=== PATIENT | female | born 1945 ===

== ENCOUNTER 2019-02-21 05:46 | Inpatient (IN) ==
[2019-02-21] MEDS ORDERED: FAMOTIDINE 20 MG TABLET PO ONE (06:00)
[2019-02-21] MEDS ORDERED: ceFAZolin 1,000 MG in SYRINGE 1 EACH IV ONE (06:00)
[2019-02-21] MEDS ORDERED: INDOCYANINE GREEN 25 MG VIAL IV ONE ×2 (06:06→06:14)
[2019-02-21] MEDS ORDERED: LIDOCAINE MPF 1% /EPI 30 ML VIAL ONE (06:14)
[2019-02-21] MEDS ORDERED: BUPIVACAINE 0.25% /EPI 10 ML VIAL ONE (06:14)
[2019-02-21] MEDS ORDERED: TISSUE ADHESIVE 1 EACH APPLICATOR TOP ONE (06:14)
[2019-02-21] MEDS ORDERED: ACETAMINOPHEN 500 MG TABLET PO ONE (06:44)
[2019-02-21] MEDS ORDERED: FAMOTIDINE 20 MG TABLET ONE (06:47)
[2019-02-21] MEDS ORDERED: ceFAZolin 1,000 MG VIAL ONE (06:47)
[2019-02-21] MEDS ORDERED: PIPERACILLIN/TAZOBACTAM 3,375 MG in SODIUM CHLORIDE 0.9% 100 ML IV ONE (06:58)
[2019-02-21] MEDS ORDERED: LACTATED RINGERS 1,000 ML IV SCH (07:00)
[2019-02-21] MEDS ORDERED: PIPERACILLIN/TAZOBACTAM 3,375 MG VIAL IV ONE (07:13)
[2019-02-21 07:17] LABS: Basophils % 0.4 % (0.0-0.8); Hematocrit 22.8 VOL% (35.7-47.0); Hemoglobin 7.4 GM/DL (12.0-16.0); Immature Granulocytes % 0.2 %; Immature Granulocytes Absolute 0.01 #; Lymphocytes # 0.8 10*3/uL (1.4-4.0); Lymphocytes % 15.9 % (21.3-54.2); Mean Corpuscular HGB Conc 32.5 GM/DL (32-36); Mean Corpuscular Volume 93.4 FL (87-102); Mean Platelet Volume 9.2 FL (9.6-12.0); Monocytes % 7.8 % (1.7-12.7); Neutrophils % 75.7 % (38.7-73.9); Platelet Count 102 T/CUMM (130-400); Red Blood Count 2.44 MC/CUMM (3.8-5.5); Red Cell Distribution Width 12.9 % (9.3-17.3)
[2019-02-21 07:41] LABS: Apearance,Urine CLOUDY (Clear); Bilirubin,Urine Negative (Negative); Blood, Urine Moderate mg/dL (Negative); Glucose,Urine (UA) Negative (Negative); Ketones,Urine Negative (Negative); Mucus,Urine Occasional /LPF (Occasional); Nitrite,Urine Negative (Negative); Protein,Urine 30 MG/DL; RBC,Urine 20 /HPF (0-4); Squamous Epithelial Cell,Urine Occasional /HPF (0-10); Urine Color Yellow (Yellow); Urine Specific Gravity 1.008 (1.001-1.035); Urine Urobilinogen < 2.0 EU/DL (0.2-1.0); WBC,Urine 707 /HPF (0-6)
[2019-02-21 07:48] LABS: Alanine Aminotransferase 15 U/L (13-56); Albumin 2.2 G/DL (3.4-5.0); Alkaline Phosphatase 60 U/L (45-117); Aspartate Amino Transferase 12 U/L (0-37); Bilirubin,Total < 0.39 MG/DL (0.2-1.0); Blood Urea Nitrogen 6 MG/DL (7-18); Calcium 7.7 MG/DL (8.5-10.1); Estimated Glom Filtration Rate 111 ML/MIN; Glucose 115 MG/DL (74-106); Osmolality,Calculated 273.7 MOS/KG (273-304); Total Protein 5.8 G/DL (6.4-8.3)
[2019-02-21 08:31] LABS: Basophils % 0.3 % (0.0-0.8); Hematocrit 32.7 VOL% (35.7-47.0); Immature Granulocytes % 0.1 %; Immature Granulocytes Absolute 0.01 #; Lymphocytes # 1.3 10*3/uL (1.4-4.0); Lymphocytes % 18.3 % (21.3-54.2); Mean Corpuscular HGB Conc 33.6 GM/DL (32-36); Mean Corpuscular Volume 89.8 FL (87-102); Mean Platelet Volume 9.5 FL (9.6-12.0); Monocytes % 7.1 % (1.7-12.7); Neutrophils % 74.2 % (38.7-73.9); Red Cell Distribution Width 12.9 % (9.3-17.3)
[2019-02-21 08:32] LABS: Platelet Count 143 T/CUMM (130-400); Red Blood Count 3.64 MC/CUMM (3.8-5.5)
[2019-02-21 08:45] LABS: Alanine Aminotransferase 20 U/L (13-56); Albumin 2.9 G/DL (3.4-5.0); Alkaline Phosphatase 75 U/L (45-117); Aspartate Amino Transferase 14 U/L (0-37); Blood Urea Nitrogen 7 MG/DL (7-18); Calcium 8.4 MG/DL (8.5-10.1); Estimated Glom Filtration Rate 97 ML/MIN; Glucose 140 MG/DL (74-106); Osmolality,Calculated 274.7 MOS/KG (273-304); Total Protein 7.3 G/DL (6.4-8.3)
[2019-02-21] MEDS ORDERED: ONDANSETRON 4 MG/2 ML VIAL IV PRN (10:45)
[2019-02-21] MEDS ORDERED: MINERAL OIL ENEMA 133 ML BOTTLE RECTAL PRN (10:45)
[2019-02-21] MEDS ORDERED: PROMETHAZINE 25 MG/1 ML VIAL IM PRN (10:45)
[2019-02-21] MEDS ORDERED: MAGNESIUM HYDROXIDE SUSP 30 ML UDCUP PO PRN (10:45)
[2019-02-21] MEDS ORDERED: DEXTROSE 50% 25 GM/50 ML VIAL IV PRN (10:45)
[2019-02-21] MEDS ORDERED: GLUCAGON 1 MG VIAL IM PRN (10:45)
[2019-02-21] MEDS: PANTOPRAZOLE 40 MG TABLET PO SCH (11:26)
[2019-02-21] MEDS: metroNIDAZOLE INJ 500 MG in PREMIX 1 EACH IV SCH ×2 (11:26→19:28)
[2019-02-21] MEDS: INSULIN REGULAR 100 UNIT/ML SUBCUT SCH ×6 (11:30→20:33)
[2019-02-21] MEDS: LEVOFLOXACIN INJ 750 MG in PREMIX 1 EACH IV SCH (12:37)
[2019-02-21] MEDS: ACETAMINOPHEN 325 MG TABLET PO PRN ×2 (16:33→22:39)
[2019-02-21] MEDS: LACTATED RINGERS 1,000 ML IV SCH ×2 (17:32→18:45)
[2019-02-21] MEDS: METOPROLOL TARTRATE 25 MG TABLET PO SCH (20:34)
[2019-02-21] MEDS: DOCUSATE/SENNA 50-8.6 MG TABLET PO SCH (20:34)
[2019-02-21] MEDS: INSULIN GLARGINE 100 UNIT/ML SUBCUT SCH (20:34)
[2019-02-21] MEDS: TRAVOPROST 0.004% OPH SOLN 2.5 ML BOTTLE BOTH EYES SCH (20:37)
[2019-02-22] MEDS: ENOXAPARIN 40 MG/0.4 ML SYRINGE SUBCUT SCH (02:09)
[2019-02-22] MEDS: LACTATED RINGERS 1,000 ML IV SCH ×3 (02:11→18:45)
[2019-02-22] MEDS: metroNIDAZOLE INJ 500 MG in PREMIX 1 EACH IV SCH ×3 (02:13→20:27)
[2019-02-22] MEDS: INSULIN REGULAR 100 UNIT/ML SUBCUT SCH ×8 (07:21→20:44)
[2019-02-22] MEDS: METOPROLOL TARTRATE 25 MG TABLET PO SCH ×2 (09:19→20:42)
[2019-02-22] MEDS: LISINOPRIL 20 MG TABLET PO SCH (09:21)
[2019-02-22] MEDS: PANTOPRAZOLE 40 MG TABLET PO SCH (09:21)
[2019-02-22] MEDS: CETIRIZINE 10 MG TABLET PO SCH (09:27)
[2019-02-22] MEDS: TIMOLOL 0.5% OPH SOLN 5 ML BOTTLE BOTH EYES SCH (09:27)
[2019-02-22] MEDS: ACETAMINOPHEN 325 MG TABLET PO PRN ×2 (09:27→16:19)
[2019-02-22] MEDS: LEVOFLOXACIN INJ 750 MG in PREMIX 1 EACH IV SCH (13:03)
[2019-02-22] MEDS: DOCUSATE/SENNA 50-8.6 MG TABLET PO SCH (20:42)
[2019-02-22] MEDS: INSULIN GLARGINE 100 UNIT/ML SUBCUT SCH (20:43)
[2019-02-22] MEDS: TRAVOPROST 0.004% OPH SOLN 2.5 ML BOTTLE BOTH EYES SCH (20:45)
[2019-02-23] MEDS: LACTATED RINGERS 1,000 ML IV SCH ×5 (00:40→23:44)
[2019-02-23] MEDS: ENOXAPARIN 40 MG/0.4 ML SYRINGE SUBCUT SCH (02:15)
[2019-02-23] MEDS: metroNIDAZOLE INJ 500 MG in PREMIX 1 EACH IV SCH ×3 (02:18→18:16)
[2019-02-23 06:08] LABS: Basophils % 0.4 % (0.0-0.8); Eosinophils % 0.4 % (0.00-10.9); Hematocrit 33.2 VOL% (35.7-47.0); Immature Granulocytes % 0.4 %; Immature Granulocytes Absolute 0.02 #; Lymphocytes # 1.3 10*3/uL (1.4-4.0); Lymphocytes % 26.6 % (21.3-54.2); Mean Corpuscular HGB Conc 33.1 GM/DL (32-36); Mean Corpuscular Volume 90.2 FL (87-102); Mean Platelet Volume 8.9 FL (9.6-12.0); Monocytes % 10.9 % (1.7-12.7); Neutrophils % 61.3 % (38.7-73.9); Platelet Count 135 T/CUMM (130-400); Red Blood Count 3.68 MC/CUMM (3.8-5.5)
[2019-02-23 06:29] LABS: Alanine Aminotransferase 17 U/L (13-56); Albumin 2.7 G/DL (3.4-5.0); Alkaline Phosphatase 70 U/L (45-117); Aspartate Amino Transferase 11 U/L (0-37); Bilirubin,Total < 0.39 MG/DL (0.2-1.0); Blood Urea Nitrogen 5 MG/DL (7-18); Calcium 8.8 MG/DL (8.5-10.1); Estimated Glom Filtration Rate 97 ML/MIN; Glucose 90 MG/DL (74-106); Osmolality,Calculated 275.4 MOS/KG (273-304); Total Protein 7.3 G/DL (6.4-8.3)
[2019-02-23] MEDS: INSULIN REGULAR 100 UNIT/ML SUBCUT SCH ×8 (07:30→20:45)
[2019-02-23] MEDS: CETIRIZINE 10 MG TABLET PO SCH (08:27)
[2019-02-23] MEDS: METOPROLOL TARTRATE 25 MG TABLET PO SCH ×2 (08:27→20:45)
[2019-02-23] MEDS: PANTOPRAZOLE 40 MG TABLET PO SCH (08:27)
[2019-02-23] MEDS: LISINOPRIL 20 MG TABLET PO SCH (08:27)
[2019-02-23] MEDS: TIMOLOL 0.5% OPH SOLN 5 ML BOTTLE BOTH EYES SCH (08:31)
[2019-02-23] MEDS: ACETAMINOPHEN 325 MG TABLET PO PRN ×3 (08:58→20:51)
[2019-02-23] MEDS ORDERED: hydrALAZINE 20 MG/1 ML VIAL IV PRN (09:22)
[2019-02-23] MEDS: LEVOFLOXACIN INJ 750 MG in PREMIX 1 EACH IV SCH (12:12)
[2019-02-23] MEDS: DOCUSATE/SENNA 50-8.6 MG TABLET PO SCH (20:45)
[2019-02-23] MEDS: INSULIN GLARGINE 100 UNIT/ML SUBCUT SCH (20:45)
[2019-02-23] MEDS: TRAVOPROST 0.004% OPH SOLN 2.5 ML BOTTLE BOTH EYES SCH (20:45)
[2019-02-24] MEDS: metroNIDAZOLE INJ 500 MG in PREMIX 1 EACH IV SCH (01:48)
[2019-02-24] MEDS: LACTATED RINGERS 1,000 ML IV SCH (02:56)
[2019-02-24 05:11] LABS: Basophils % 0.8 % (0.0-0.8); Eosinophils % 0.5 % (0.00-10.9); Hematocrit 30.5 VOL% (35.7-47.0); Hemoglobin 10.1 GM/DL (12.0-16.0); Immature Granulocytes % 0.3 %; Immature Granulocytes Absolute 0.01 #; Lymphocytes # 1.2 10*3/uL (1.4-4.0); Lymphocytes % 31.9 % (21.3-54.2); Mean Corpuscular HGB Conc 33.1 GM/DL (32-36); Mean Corpuscular Volume 92.1 FL (87-102); Mean Platelet Volume 9.4 FL (9.6-12.0); Monocytes % 10.6 % (1.7-12.7); Neutrophils % 55.9 % (38.7-73.9); Platelet Count 128 T/CUMM (130-400); Red Blood Count 3.31 MC/CUMM (3.8-5.5); White Blood Count 3.8 T/CUMM (4-12)
[2019-02-24 05:47] LABS: Albumin 2.8 G/DL (3.4-5.0); Calcium 8.9 MG/DL (8.5-10.1); Osmolality,Calculated 280.3 MOS/KG (273-304); Total Protein 7.1 G/DL (6.4-8.3)
[2019-02-24] MEDS ORDERED: ceFAZolin 1,000 MG in SYRINGE 1 EACH IV ONE (06:30)
[2019-02-24] MEDS ORDERED: INDOCYANINE GREEN 25 MG VIAL IV ONE (07:00)
[2019-02-24] MEDS: INSULIN REGULAR 100 UNIT/ML SUBCUT SCH ×5 (08:39→21:53)
[2019-02-24] MEDS: AMPICILLIN/SULBACTAM 1,500 MG in SODIUM CHLORIDE 0.9% 100 ML IV SCH ×3 (08:54→23:45)
[2019-02-24] MEDS: METOPROLOL TARTRATE 25 MG TABLET PO SCH ×2 (09:24→21:54)
[2019-02-24] MEDS: CETIRIZINE 10 MG TABLET PO SCH (09:25)
[2019-02-24] MEDS: LISINOPRIL 20 MG TABLET PO SCH (09:25)
[2019-02-24] MEDS: PANTOPRAZOLE 40 MG TABLET PO SCH (09:25)
[2019-02-24] MEDS: TIMOLOL 0.5% OPH SOLN 5 ML BOTTLE BOTH EYES SCH (09:26)
[2019-02-24] MEDS: ACETAMINOPHEN 325 MG TABLET PO PRN ×2 (11:44→19:45)
[2019-02-24] MEDS: INSULIN GLARGINE 100 UNIT/ML SUBCUT SCH (21:53)
[2019-02-24] MEDS: DOCUSATE/SENNA 50-8.6 MG TABLET PO SCH (21:54)
[2019-02-24] MEDS: TRAVOPROST 0.004% OPH SOLN 2.5 ML BOTTLE BOTH EYES SCH (21:54)
[2019-02-25] MEDS: LACTATED RINGERS 1,000 ML IV SCH ×2 (04:30→16:46)
[2019-02-25] MEDS ORDERED: INDOCYANINE GREEN 25 MG VIAL IV ONE (07:30)
[2019-02-25] MEDS ORDERED: ceFAZolin 1,000 MG in SYRINGE 1 EACH IV ONE (07:30)
[2019-02-25] MEDS: INSULIN REGULAR 100 UNIT/ML SUBCUT SCH ×4 (08:54→21:41)
[2019-02-25] MEDS: AMPICILLIN/SULBACTAM 1,500 MG in SODIUM CHLORIDE 0.9% 100 ML IV SCH ×3 (08:58→23:49)
[2019-02-25] MEDS: METOPROLOL TARTRATE 25 MG TABLET PO SCH ×2 (13:12→21:40)
[2019-02-25] MEDS ORDERED: PROPOFOL 200 MG/20 ML VIAL IV ONE (13:22)
[2019-02-25] MEDS ORDERED: SEVOFLURANE 1 UNIT/15 MINUTE INH ONE (13:22)
[2019-02-25] MEDS ORDERED: HYDROmorphone 2 MG/1 ML VIAL ONE (13:23)
[2019-02-25] MEDS ORDERED: ONDANSETRON 4 MG/2 ML VIAL ONE ×2 (13:23)
[2019-02-25] MEDS ORDERED: GLYCOPYRROLATE 0.4 MG/2 ML VIAL ONE (13:23)
[2019-02-25] MEDS ORDERED: fentaNYL 250 MCG/5 ML VIAL ONE (13:23)
[2019-02-25] MEDS ORDERED: NEOSTIGMINE 10 MG/10 ML VIAL ONE (13:23)
[2019-02-25] MEDS ORDERED: ROCURONIUM 100 MG/10 ML VIAL IV ONE (13:23)
[2019-02-25] MEDS ORDERED: DEXAMETHASONE 4 MG/1 ML VIAL ONE (13:23)
[2019-02-25] MEDS ORDERED: ACETAMINOPHEN 1,000 MG/100 ML VIAL IV ONE (13:24)
[2019-02-25] MEDS ORDERED: HYDROmorphone 2 MG/1 ML VIAL IV PRN (13:28)
[2019-02-25] MEDS ORDERED: ONDANSETRON 4 MG/2 ML VIAL IV PRN (13:28)
[2019-02-25] MEDS ORDERED: LABETALOL 100 MG/20 ML VIAL IV ONE (13:46)
[2019-02-25] MEDS ORDERED: LABETALOL 20 MG/4 ML SYRINGE IV ONE (13:49)
[2019-02-25] MEDS: LISINOPRIL 20 MG TABLET PO SCH (16:04)
[2019-02-25] MEDS: PANTOPRAZOLE 40 MG TABLET PO SCH (16:04)
[2019-02-25] MEDS: TIMOLOL 0.5% OPH SOLN 5 ML BOTTLE BOTH EYES SCH (16:05)
[2019-02-25] MEDS: CETIRIZINE 10 MG TABLET PO SCH (16:05)
[2019-02-25 16:09] LABS: Basophils % 0.2 % (0.0-0.8); Eosinophils % 0.2 % (0.00-10.9); Hematocrit 36.8 VOL% (35.7-47.0); Immature Granulocytes % 0.4 %; Immature Granulocytes Absolute 0.03 #; Lymphocytes # 0.8 10*3/uL (1.4-4.0); Lymphocytes % 9.5 % (21.3-54.2); Mean Corpuscular HGB Conc 32.6 GM/DL (32-36); Mean Corpuscular Volume 92.2 FL (87-102); Mean Platelet Volume 9.6 FL (9.6-12.0); Monocytes % 2.4 % (1.7-12.7); Neutrophils % 87.3 % (38.7-73.9); Platelet Count 161 T/CUMM (130-400); Red Blood Count 3.99 MC/CUMM (3.8-5.5)
[2019-02-25 16:13] LABS: White Blood Count 8.5 T/CUMM (4-12)
[2019-02-25 16:39] LABS: Osmolality,Calculated 279.4 MOS/KG (273-304)
[2019-02-25] MEDS: INSULIN GLARGINE 100 UNIT/ML SUBCUT SCH (21:40)
[2019-02-25] MEDS: TRAVOPROST 0.004% OPH SOLN 2.5 ML BOTTLE BOTH EYES SCH (21:40)
[2019-02-25] MEDS: DOCUSATE/SENNA 50-8.6 MG TABLET PO SCH (21:40)
[2019-02-25] MEDS: ACETAMINOPHEN 325 MG TABLET PO PRN (21:52)
[2019-02-26] MEDS: LACTATED RINGERS 1,000 ML IV SCH (03:30)
[2019-02-26] MEDS: ENOXAPARIN 40 MG/0.4 ML SYRINGE SUBCUT SCH (03:30)
[2019-02-26 05:34] LABS: Basophils % 0.2 % (0.0-0.8); Hematocrit 32.3 VOL% (35.7-47.0); Hemoglobin 10.8 GM/DL (12.0-16.0); Immature Granulocytes % 0.3 %; Immature Granulocytes Absolute 0.02 #; Lymphocytes # 1.3 10*3/uL (1.4-4.0); Lymphocytes % 19.7 % (21.3-54.2); Mean Corpuscular HGB Conc 33.4 GM/DL (32-36); Mean Corpuscular Volume 90.5 FL (87-102); Mean Platelet Volume 9.7 FL (9.6-12.0); Monocytes % 9.6 % (1.7-12.7); Neutrophils % 70.2 % (38.7-73.9); Platelet Count 181 T/CUMM (130-400); Red Blood Count 3.57 MC/CUMM (3.8-5.5); Red Cell Distribution Width 12.8 % (9.3-17.3); White Blood Count 6.3 T/CUMM (4-12)
[2019-02-26 05:55] LABS: Calcium 8.3 MG/DL (8.5-10.1); Osmolality,Calculated 280.4 MOS/KG (273-304)
[2019-02-26 07:57] VITALS: BP 142/76
[2019-02-26] MEDS: AMPICILLIN/SULBACTAM 1,500 MG in SODIUM CHLORIDE 0.9% 100 ML IV SCH (08:54)
[2019-02-26] MEDS: METOPROLOL TARTRATE 25 MG TABLET PO SCH (08:55)
[2019-02-26] MEDS: CETIRIZINE 10 MG TABLET PO SCH (08:56)
[2019-02-26] MEDS: LISINOPRIL 20 MG TABLET PO SCH (08:56)
[2019-02-26] MEDS: INSULIN REGULAR 100 UNIT/ML SUBCUT SCH (08:59)
[2019-02-26] MEDS: PANTOPRAZOLE 40 MG TABLET PO SCH (09:41)
== END 2019-02-26 11:30 | disposition home or self-care (01) | DRG 418 ==
LOC: N.OR 05:46 → N.SDSINP 05:49 → N.3E 10:38
PROVIDERS: ADMIT Surgery; ATTEND Surgery